=== PATIENT | female | born 1940 | race Caucasian/White ===

== ENCOUNTER 2017-07-20 15:08 | Outpatient (CLI) | payer MEDICARE, MEDICAID ==
[2017-07-20 16:20] LABS: BASOPHILS % (AUTO) 0.3 % (0-1); EOSINOPHILS % (AUTO) 0.8 % (0-6); HEMATOCRIT 35.4 % (35.0-45.0); HEMOGLOBIN 12.2 g/dl (12.0-16.0); LYMPHOCYTES # (AUTO) 1.9 X10'3 (1.1-4.8); LYMPHOCYTES % (AUTO) 30.6 % (21-51); MEAN CORPUSCULAR HEMOGLOBIN 32.2 PG (27.0-31.0); MEAN CORPUSCULAR HGB CONC 34.3 % (33.0-36.5); MEAN CORPUSCULAR VOLUME 93.7 FL (78-98); MONOCYTES # (AUTO) 0.4 X10'3 (0-0.9); MONOCYTES % (AUTO) 5.9 % (2-12); NEUTROPHILS # (AUTO) 3.9 X10'3 (1.8-7.7); NEUTROPHILS % (AUTO) 62.4 % (42-75); PLATELET COUNT 196 X10'3 (140-440); RED BLOOD COUNT 3.78 X10'6 (4.20-5.60); RED CELL DISTRIBUTION WIDTH 12.5 % (11.5-14.5); WHITE BLOOD COUNT 6.2 X10'3 (4.5-11.0)
[2017-07-20 16:24] LABS: CLARITY,URINE SLIGHTLY CLOUDY (Clear); COLOR,URINE YELLOW (Yellow); GLUCOSE, URINE NEGATIVE (Neg); KETONES,URINE 15 mg/dl (Neg); LEUKOCYTE ESTERASE ,URINE NEGATIVE (Neg); NITRITES, URINE NEGATIVE (Neg); OCCULT BLOOD,URINE TRACE-INTACT (Neg); PH,URINE 7.5 (4.8-8.0); PROTEIN,URINE NEGATIVE (Neg); UROBILINOGEN,URINE 0.2 E.U/dL (0.2-1.0)
[2017-07-20 16:26] LABS: UA COLLECTION TYPE CLN CATCH MIDSTREAM
[2017-07-20 16:33] LABS: PROTHROMBIN TIME 10.6 SECONDS (9.0-12.0)
[2017-07-20 16:38] LABS: ALANINE AMINOTRANSFERASE 26 U/L (12-78); ALBUMIN 4.1 G/DL (3.4-5.0); ALBUMIN/GLOBULIN RATIO 1.1 (1.1-1.5); ALKALINE PHOSPHATASE 46 IU/L (46-116); ANION GAP 11 (8-16); ASPARTATE AMINO TRANSFERASE 24 U/L (10-37); BILIRUBIN,TOTAL 0.7 MG/DL (0.1-1.0); BLOOD UREA NITROGEN 17 MG/DL (7-18); BUN/CREATININE RATIO 23.9 (6.6-38.0); CALCIUM 9.3 MG/DL (8.5-10.1); CHLORIDE 106 MMOL/L (99-107); CREATININE 0.71 MG/DL (0.40-0.90); GLUCOSE 107 MG/DL (70-104); SODIUM 143 MMOL/L (135-145); TOTAL CARBON DIOXIDE 26.2 MMOL/L (24-32); TOTAL PROTEIN 7.7 G/DL (6.4-8.2); eGFR 80 ML/MIN
[2017-07-20 16:52] LABS: SQUAMOUS EPITHELIAL CELL,UR FEW /LPF (FEW)
[2017-07-20 16:53] LABS: BACTERIA,URINE 1+ /HPF (Neg); WBC,URINE 0-4 /HPF (0-4)
== END 2017-07-20 23:59 | disposition home or self-care (01) ==
LOC: LAB SPEC 15:08 → LAB 23:59
PROVIDERS: ATTEND Family Medicine
DX: Z01.818 Encounter for other preprocedural examination (principal); R41.3 Other amnesia; G47.00 Insomnia, unspecified; E78.5 Hyperlipidemia, unspecified; R53.83 Other fatigue
CPT/HCPCS: 36415; 71046; 80053; 81001; 85025; 85610

== ENCOUNTER 2017-07-27 15:03 | Outpatient (CLI) | payer MEDICARE, MEDICAID ==
[2017-07-27 15:59] LABS: ALBUMIN 3.8 G/DL (3.4-5.0); ANION GAP 8 (8-16); BLOOD UREA NITROGEN 20 MG/DL (7-18); BUN/CREATININE RATIO 28.6 (6.6-38.0); CALCIUM 8.6 MG/DL (8.5-10.1); CHLORIDE 105 MMOL/L (99-107); GLUCOSE 93 MG/DL (70-104); POTASSIUM 3.6 MMOL/L (3.5-5.1); SODIUM 142 MMOL/L (135-145); TOTAL CARBON DIOXIDE 29.1 MMOL/L (24-32); eGFR 81 ML/MIN
== END 2017-07-27 23:59 | disposition home or self-care (01) ==
LOC: LAB 15:03
PROVIDERS: ATTEND Family Medicine
DX: E87.6 Hypokalemia (principal)
CPT/HCPCS: 36415; 80048

== ENCOUNTER 2017-08-09 09:50 | Inpatient (IN) | payer MEDICARE, MEDICAID ==
[~2017-08-09] VITALS: Ht 152.4 cm; Wt 54.1 kg
[2017-08-09] MEDS ORDERED: RISP0.5T3 PO (11:10)
[2017-08-09] MEDS ORDERED: MULT1TAB74 PO (11:11)
[2017-08-09] MEDS ORDERED: CALC-1051 PO (11:11)
[2017-08-09] MEDS ORDERED: HYDR-565 PO (11:12)
[2017-08-09] MEDS ORDERED: IBUP-1985 PO (11:14)
[2017-08-09] MEDS ORDERED: TIZA2CAP PO (11:14)
[2017-08-09] MEDS ORDERED: ASCO500C15 PO (11:15)
[2017-08-09] MEDS ORDERED: ATOR40TA PO (11:16)
[2017-08-09 12:01] LABS: BASOPHILS % (AUTO) 0.3 % (0-1); EOSINOPHILS % (AUTO) 0 % (0-6); LYMPHOCYTES # (AUTO) 1.8 X10'3 (1.1-4.8); LYMPHOCYTES % (AUTO) 24.3 % (21-51); MEAN CORPUSCULAR HEMOGLOBIN 32.4 PG (27.0-31.0); MEAN CORPUSCULAR HGB CONC 34.3 % (33.0-36.5); MEAN CORPUSCULAR VOLUME 94.4 FL (78-98); MEAN PLATELET VOLUME 8.8 FL (7.4-10.4); MONOCYTES # (AUTO) 0.3 X10'3 (0-0.9); MONOCYTES % (AUTO) 4.6 % (2-12); NEUTROPHILS # (AUTO) 5.2 X10'3 (1.8-7.7); NEUTROPHILS % (AUTO) 70.8 % (42-75); PRE OP HEMATOCRIT 35.9 % (35.0-45.0); PRE OP HEMOGLOBIN 12.3 g/dL (12.0-16.0); PRE OP PLATELET COUNT 191 X10'3 (140-440); RED CELL DISTRIBUTION WIDTH 12.5 % (11.5-14.5)
[2017-08-09 12:13] LABS: PRE OP PROTIME 10.3 SECONDS (9.0-12.0)
[2017-08-09 12:15] LABS: CLARITY,URINE SLIGHTLY CLOUDY (Clear); COLOR,URINE YELLOW (Yellow); GLUCOSE, URINE NEGATIVE (Neg); KETONES,URINE NEGATIVE (Neg); LEUKOCYTE ESTERASE ,URINE NEGATIVE (Neg); NITRITES, URINE NEGATIVE (Neg); OCCULT BLOOD,URINE TRACE-INTACT (Neg); PROTEIN,URINE NEGATIVE (Neg); UA COLLECTION TYPE CLN CATCH MIDSTREAM; UROBILINOGEN,URINE 0.2 E.U/dL (0.2-1.0)
[2017-08-09 12:18] LABS: ALBUMIN 3.9 G/DL (3.4-5.0); ALBUMIN/GLOBULIN RATIO 1.1 (1.1-1.5); ALKALINE PHOSPHATASE 46 IU/L (46-116); BLOOD UREA NITROGEN 22 MG/DL (7-18); BUN/CREATININE RATIO 33.8 (6.6-38.0); CALCIUM 9.2 MG/DL (8.5-10.1); CHLORIDE 104 MMOL/L (99-107); CREATININE 0.65 MG/DL (0.40-0.90); PRE OP ALT 30 U/L (30-65); PRE OP ANION GAP 8 (8-16); PRE OP AST 24 U/L (10-37); PRE OP BILIRUB, TOTAL 0.6 MG/DL (0.0-1.0); PRE OP GLUCOSE 100 MG/DL (70-104); PRE OP POTASSIUM 3.7 MMOL/L (3.4-5.1); PRE OP SODIUM 141 MMOL/L (135-145); TOTAL CARBON DIOXIDE 28.7 MMOL/L (24-32); TOTAL PROTEIN 7.3 G/DL (6.4-8.2); eGFR 88 ML/MIN
[2017-08-09 12:22] LABS: BACTERIA,URINE NONE SEEN /HPF (Neg); SQUAMOUS EPITHELIAL CELL,UR FEW /LPF (FEW); WBC,URINE 0-4 /HPF (0-4)
[2017-08-11] VITALS (19 sets, daily range): BP systolic 95–148; BP diastolic 47–91
[2017-08-11] MEDS ORDERED: ringers solution, lacted 1,000 ML IV SCH ×2 (05:00→14:05)
[2017-08-11] MEDS ORDERED: Cefazolin 2GM/100ML NS IVPB IV ONE (05:30)
[2017-08-11] MEDS ORDERED: VANCOMYCIN INJ 1000 MG in NORMAL SALINE 250ml IV.SOLN IV ONE (05:30)
[2017-08-11] MEDS ORDERED: metoclopramide 5 mg/ml inj IV ONE (05:30)
[2017-08-11] MEDS ORDERED: famotidine 20mg tablet PO ONE (05:30)
[2017-08-11] MEDS ORDERED: tranexamic acid inj. 1,000 MG in normal saline 100ml IV soln 90 ML IV ONE ×2 (05:30→11:45)
[2017-08-11] MEDS ORDERED: celeCOXIB 100mg capsule PO ONE (05:30)
[2017-08-11] MEDS ORDERED: gabapentin 300mg capsule PO ONE (05:30)
[2017-08-11] MEDS ORDERED: acetaminophen 325mg tablet PO ONE (05:30)
[2017-08-11] MEDS ORDERED: diphenhydrAMINE 25mg capsule PO PRN ×2 (06:50)
[2017-08-11] MEDS ORDERED: bisacodyl 10mg suppository rectal RC PRN (06:50)
[2017-08-11] MEDS ORDERED: ondansetron/PF 4mg/2ml inj IV PRN ×2 (06:50→14:05)
[2017-08-11] MEDS ORDERED: acetaminophen 325mg tablet PO PRN (06:50)
[2017-08-11] MEDS ORDERED: magnesium hydroxide 30ml (MOM) UD suspension PO PRN (06:50)
[2017-08-11] MEDS: atorvastatin 20mg tablet PO SCH (08:00)
[2017-08-11] MEDS: calcium carbonate/vitamin D3 tablet PO SCH (08:00)
[2017-08-11] MEDS ORDERED: ceFAZolin 1GM/D5W- ADD-VANTAGE 50 ML IV SCH ×2 (08:00→20:00)
[2017-08-11] MEDS ORDERED: vancomycin/NS 1 GM ADD-VANTAGE 250 ML IV SCH ×2 (08:00→19:00)
[2017-08-11] MEDS: multivitamins, therapeutics tablet PO SCH (08:00)
[2017-08-11] MEDS: ascorbic acid 500mg tablet PO SCH ×2 (08:00→20:58)
[2017-08-11] MEDS: aspirin 325mg tablet PO SCH (08:30)
[2017-08-11] MEDS ORDERED: LIDOcaine 1% (10mg/ml) 2ml vial ONE (10:11)
[2017-08-11] MEDS ORDERED: cloNIDine hcl/PF 100mcg/ml inj ONE (11:14)
[2017-08-11] MEDS ORDERED: vancomycin 1,000mg inj ONE (11:14)
[2017-08-11] MEDS ORDERED: epiNEPHrine 1 mg/ml inj ONE (11:14)
[2017-08-11] MEDS ORDERED: ketorolac trometh. 30mg/ml inj. ONE (11:14)
[2017-08-11] MEDS ORDERED: ROPIVAcaine 0.5% (5mg/ml) 30ml vial ONE (11:15)
[2017-08-11] MEDS ORDERED: BUPIVAcaine 0.5% inj/PF 30 ml vial ONE (11:16)
[2017-08-11] MEDS ORDERED: propofol 1000mg/100ml bottle 100 ML IV ONE (11:34)
[2017-08-11] MEDS ORDERED: ondansetron/PF 4mg/2ml inj ONE (11:55)
[2017-08-11] MEDS ORDERED: morphine /PF 1mg/ml 10ml inj. ONE (11:57)
[2017-08-11] MEDS ORDERED: LIDOcaine 1% 30ml preserv. free vial ONE (12:13)
[2017-08-11] MEDS ORDERED: ePHEDrine 50MG/ML INJ. ONE (12:59)
[2017-08-11] MEDS ORDERED: dexamethasone sod phosphate 4mg/ml inj. ONE (13:17)
[2017-08-11] MEDS ORDERED: proCHLORperazine 10 MG/2 ml inj IV PRN (14:05)
[2017-08-11] MEDS ORDERED: fentaNYL/PF 50MCG/1 ML 2ML syringe IV PRN (14:05)
[2017-08-11] MEDS ORDERED: HYDROmorphone inj. 0.5 MG/0.5 ML DISP.SYRIN IV PRN (14:05)
[2017-08-11] MEDS: potassium cl 20mEq in 1/2 NS 1,000 ML IV SCH ×3 (14:49→22:49)
[2017-08-11] MEDS: mupirocin 2% nasal ointment 1gm UD NS SCH ×2 (19:35→20:00)
[2017-08-11] MEDS: risperiDONE 0.5mg tablet PO SCH (20:57)
[2017-08-11] MEDS: sennosides 8.6mg tablet PO SCH (20:58)
[2017-08-12] VITALS (7 sets, daily range): BP systolic 92–135; BP diastolic 43–63
[2017-08-12] MEDS: potassium cl 20mEq in 1/2 NS 1,000 ML IV SCH ×3 (03:14→22:49)
[2017-08-12] MEDS ORDERED: ceFAZolin 1GM/D5W- ADD-VANTAGE 50 ML IV SCH (05:00)
[2017-08-12 06:13] LABS: BASOPHILS % (AUTO) 0.2 % (0-1); EOSINOPHILS # (AUTO) 0.1 X10'3 (0-0.9); EOSINOPHILS % (AUTO) 1.4 % (0-6); HEMATOCRIT 29.5 % (35.0-45.0); HEMOGLOBIN 10.1 g/dl (12.0-16.0); LYMPHOCYTES % (AUTO) 9.4 % (21-51); MEAN CORPUSCULAR HEMOGLOBIN 32.1 PG (27.0-31.0); MEAN CORPUSCULAR HGB CONC 34.2 % (33.0-36.5); MEAN CORPUSCULAR VOLUME 93.8 FL (78-98); MEAN PLATELET VOLUME 8.6 FL (7.4-10.4); MONOCYTES # (AUTO) 0.6 X10'3 (0-0.9); MONOCYTES % (AUTO) 5.4 % (2-12); NEUTROPHILS # (AUTO) 8.7 X10'3 (1.8-7.7); NEUTROPHILS % (AUTO) 83.6 % (42-75); PLATELET COUNT 170 X10'3 (140-440); RED BLOOD COUNT 3.14 X10'6 (4.20-5.60); RED CELL DISTRIBUTION WIDTH 12.8 % (11.5-14.5); WHITE BLOOD COUNT 10.4 X10'3 (4.5-11.0)
[2017-08-12 06:26] LABS: ANION GAP 9 (8-16); CHLORIDE 108 MMOL/L (99-107); POTASSIUM 3.9 MMOL/L (3.5-5.1); SODIUM 141 MMOL/L (135-145)
[2017-08-12] MEDS: atorvastatin 20mg tablet PO SCH (07:32)
[2017-08-12] MEDS: calcium carbonate/vitamin D3 tablet PO SCH (07:33)
[2017-08-12] MEDS: ascorbic acid 500mg tablet PO SCH ×2 (07:33→20:24)
[2017-08-12] MEDS: multivitamins, therapeutics tablet PO SCH (07:33)
[2017-08-12] MEDS: aspirin 325mg tablet PO SCH (07:33)
[2017-08-12] MEDS: mupirocin 2% nasal ointment 1gm UD NS SCH ×3 (08:00→20:24)
[2017-08-12] MEDS: HYDROcodone/acetaminophen 10/325mg tab PO PRN ×3 (12:34→21:46)
[2017-08-12] MEDS: risperiDONE 0.5mg tablet PO SCH (20:24)
[2017-08-12] MEDS: sennosides 8.6mg tablet PO SCH (20:24)
[2017-08-13] MEDS: HYDROcodone/acetaminophen 10/325mg tab PO PRN ×4 (04:34→21:09)
[2017-08-13 06:00] VITALS: BP 148/73
[2017-08-13 06:03] LABS: BASOPHILS % (AUTO) 0.1 % (0-1); EOSINOPHILS # (AUTO) 0.1 X10'3 (0-0.9); EOSINOPHILS % (AUTO) 0.8 % (0-6); HEMATOCRIT 28.9 % (35.0-45.0); HEMOGLOBIN 9.9 g/dl (12.0-16.0); LYMPHOCYTES # (AUTO) 1.9 X10'3 (1.1-4.8); LYMPHOCYTES % (AUTO) 24.1 % (21-51); MEAN CORPUSCULAR HEMOGLOBIN 32.4 PG (27.0-31.0); MEAN CORPUSCULAR HGB CONC 34.2 % (33.0-36.5); MEAN CORPUSCULAR VOLUME 94.8 FL (78-98); MEAN PLATELET VOLUME 8.7 FL (7.4-10.4); MONOCYTES # (AUTO) 0.6 X10'3 (0-0.9); MONOCYTES % (AUTO) 7.7 % (2-12); NEUTROPHILS # (AUTO) 5.2 X10'3 (1.8-7.7); NEUTROPHILS % (AUTO) 67.3 % (42-75); PLATELET COUNT 149 X10'3 (140-440); RED BLOOD COUNT 3.05 X10'6 (4.20-5.60); RED CELL DISTRIBUTION WIDTH 13.1 % (11.5-14.5); WHITE BLOOD COUNT 7.8 X10'3 (4.5-11.0)
[2017-08-13] MEDS: multivitamins, therapeutics tablet PO SCH (07:55)
[2017-08-13] MEDS: atorvastatin 20mg tablet PO SCH (07:55)
[2017-08-13] MEDS: aspirin 325mg tablet PO SCH (07:55)
[2017-08-13] MEDS: ascorbic acid 500mg tablet PO SCH ×2 (07:55→21:09)
[2017-08-13] MEDS: calcium carbonate/vitamin D3 tablet PO SCH (07:56)
[2017-08-13] MEDS: mupirocin 2% nasal ointment 1gm UD NS SCH ×2 (07:56→20:00)
[2017-08-13 10:00] VITALS: BP 129/63
[2017-08-13 18:00] VITALS: BP 134/72
[2017-08-13] MEDS: risperiDONE 0.5mg tablet PO SCH (21:08)
[2017-08-13] MEDS: sennosides 8.6mg tablet PO SCH (21:08)
[2017-08-14] MEDS: HYDROcodone/acetaminophen 10/325mg tab PO PRN ×3 (00:43→11:53)
[2017-08-14] MEDS: mupirocin 2% nasal ointment 1gm UD NS SCH (08:24)
[2017-08-14] MEDS: aspirin 325mg tablet PO SCH (08:24)
[2017-08-14] MEDS: multivitamins, therapeutics tablet PO SCH (08:24)
[2017-08-14] MEDS: calcium carbonate/vitamin D3 tablet PO SCH (08:24)
[2017-08-14] MEDS: ascorbic acid 500mg tablet PO SCH (08:24)
[2017-08-14] MEDS: atorvastatin 20mg tablet PO SCH (08:24)
[2017-08-14 09:46] LABS: BASOPHILS % (AUTO) 0.3 % (0-1); EOSINOPHILS % (AUTO) 0 % (0-6); HEMATOCRIT 31.2 % (35.0-45.0); HEMOGLOBIN 10.6 g/dl (12.0-16.0); LYMPHOCYTES # (AUTO) 1.7 X10'3 (1.1-4.8); MEAN CORPUSCULAR HEMOGLOBIN 32.2 PG (27.0-31.0); MEAN CORPUSCULAR VOLUME 94.6 FL (78-98); MEAN PLATELET VOLUME 8.4 FL (7.4-10.4); MONOCYTES # (AUTO) 0.4 X10'3 (0-0.9); MONOCYTES % (AUTO) 5.4 % (2-12); NEUTROPHILS # (AUTO) 5.2 X10'3 (1.8-7.7); NEUTROPHILS % (AUTO) 71.3 % (42-75); PLATELET COUNT 171 X10'3 (140-440); RED CELL DISTRIBUTION WIDTH 12.8 % (11.5-14.5); WHITE BLOOD COUNT 7.2 X10'3 (4.5-11.0)
[2017-08-14 10:00] VITALS: BP 124/67
== END 2017-08-14 12:25 | DRG 470 ==
LOC: EDSTATUS 09:50 → PAS IN 08-11 09:43 → EDSTATUS 08-11 13:15 → ORTHO 4S 08-11 15:25
PROVIDERS: ADMIT Orthopaedic Surgery; ATTEND Orthopaedic Surgery
PROC: 0SRB06Z Replacement of Left Hip Joint with Oxidized Zirconium on Polyethylene Synthetic Substitute, Open Approach (ICD-10-PCS; principal; 2017-08-11 11:55)
DX: M16.12 Unilateral primary osteoarthritis, left hip (principal); F03.90 Unspecified dementia, unspecified severity, without behavioral disturbance, psychotic disturbance, mood disturbance, and anxiety; Z96.641 Presence of right artificial hip joint; D62 Acute posthemorrhagic anemia; F32.9 Major depressive disorder, single episode, unspecified; F41.9 Anxiety disorder, unspecified; E78.5 Hyperlipidemia, unspecified; Z17.1 Estrogen receptor negative status [ER-]; Z79.82 Long term (current) use of aspirin; Z80.9 Family history of malignant neoplasm, unspecified; Z87.891 Personal history of nicotine dependence
CPT/HCPCS: 36415; 71046; 72170; 80051; 80053; 81001; 85025; 85610; 85730; 86885; 86900; 86901; 87070; 97110; 97116; 97162; 97530; A4615; A7000; C1758; C1776; J0171; J0690; J0735; J1100; J1885; J2274; J2405; J2704; J2765; J2795; J3370; J3490; J7030; J7120